=== PATIENT | male | born 1970 | race African-American/Black ===

== ENCOUNTER 2022-09-13 23:34 | Emergency (ER) | payer OTHER ==
[~2022-09-13] VITALS: Ht 170.2 cm; Wt 90.9 kg
[2022-09-14] MEDS ORDERED: CYCL-448 PO (00:49)
[2022-09-14 01:51] VITALS: BP 138/78
== END 2022-09-14 02:02 | disposition home or self-care (01) ==
LOC: EMS 23:36
DX: M25.511 Pain in right shoulder (principal); M25.561 Pain in right knee; V49.88XA Car occupant (driver) (passenger) injured in other specified transport accidents, initial encounter; Y93.89 Activity, other specified; Y92.89 Other specified places as the place of occurrence of the external cause; Y99.8 Other external cause status
CPT/HCPCS: 72040; 99284; 73030-TC; 73562-TC; Z7502